=== PATIENT | female | born 1955 | race Caucasian/White ===

== ENCOUNTER → 2016-07-10 | Outpatient (CLI) | payer BC | END | disposition home or self-care (01) | LOC: C.PATHSPEC 17:18 | PROVIDERS: ATTEND Plastic Surgery | DX: L82.1 Other seborrheic keratosis (principal); L91.8 Other hypertrophic disorders of the skin ==

== ENCOUNTER → 2017-04-13 | Outpatient (CLI) | payer BC ==
[~2017-04-13] MED LIST: APRE1TAB3 PO; CLR10 PO; DVN80125 PO; ESTR10TA PV
== END | disposition home or self-care (01) ==
LOC: C.CPL 10:19
PROVIDERS: ATTEND Physician Assistant
DX: Z01.818 Encounter for other preprocedural examination (principal)

== ENCOUNTER → 2017-04-21 | Day surgery (SDC) | payer BC ==
[2017-04-14 14:34] VITALS: Ht 162.6 cm; Wt 68.2 kg
[~2017-04-21] VITALS: Ht 162.6 cm; Wt 68.2 kg
[~2017-04-21] MED LIST changes: +ACETAMINOPHEN 325 MG TAB PO PRN; +ATROPINE SULFATE 0.1 MG/ML 5ML SYR IV PRN; +CLINDAMYCIN 600MG IV SCH; +ERYTHROMYCIN OP OINT 5 MG/GM 3.5 GM TUBE ONE; +EpHEDrine SULFATE INJ 50 MG/ML AMP IV PRN; +EpHEDrine SULFATE INJ 50 MG/ML AMP ONE; +FENTANYL CITRATE INJ 50 MCG/1 ML 2 ML VIAL IV PRN; +FENTANYL CITRATE INJ 50 MCG/1 ML 2 ML VIAL ONE; +GENTIAN VIOLET TOP SOLN DROP CHARGE ONE; +LACTATED RINGER'S 1000ML 1,000 ML IV SCH; +LIDOCAINE HCL 2% 2 ML VIAL (20MG/ML) ONE; +LIDOCAINE/EPINEPHRINE 1% 20 ML VIAL ONE; +METOCLOPRAMIDE HCL INJ 5 MG/ML 2 ML VIAL IV PRN; +MIDAZOLAM HCL 1 MG/ML 2ML VIAL ONE; +ONDANSETRON INJ 2 MG/ML 2 ML VIAL IV PRN; +ONDANSETRON INJ 2 MG/ML 2 ML VIAL ONE; +OXYCODONE/ACETAMINOPHEN 5-325 TAB PO PRN; +POVIDONE-IODINE OP SOLN 30 ML BTL ONE; +PROPOFOL IV EMULSION 10 MG/ML 20 ML VIAL IV ONE; +SCOPOLAMINE 1.5 MG TDSY TD ONE; +SODIUM CHLORIDE 0.9% 1000ML 1,000 ML IV SCH
--- NOTE | 2017-04-21 08:13 | History & Physical Bridge - [place] ---
H&P Re-Evaluation Bridge Note: I have examined the patient, reviewed the History & Physical and in the interval since the performance of the History & Physical I have noted the following changes of clinical significance: No changes noted
--- NOTE | 2017-04-21 08:31 | Discharge Instructions ---
Discharge Instructions Date of Service Apr 21, 2017. Admission Reason for Admission: Bilateral Dermatochalasis Discharge Discharge Diagnosis / Problem: bilateral dermatochalasis Discharge Goals Goal(s): Decrease discomfort, Improve function Activity Recommendations Activity Limitations: per Instructions/Follow-up section ACTIVITY RECOMMENDATIONS: __Normal activities _x_No bending, lifting or straining __No driving _x_Driving allowed when you are off pain medications _x_Walking permitted __You should have help at home for ___ days DRESSINGS: _x_No dressings required __Keep dressings dry/in place until first office visit __Remove dressings ___ and leave dressings off __Apply ice ___ days __Remove dressings and reapply garment _x_Apply antibiotic ointment (prescribed at your last office visit) to wounds 3- 4 times/day for 10 days BATHING: __Keep dressings dry _x_Sponge bathing permitted __Showering permitted _x_No swimming, hot tubs or soaking in a tub MEDICATIONS: Resume previous medications unless instructed otherwise by your surgeon. _x_Do not use aspirin, Motrin, Advil or Ibuprofen as these may promote bleeding. Please use Tylenol. _x_Prescription(s) provided: Pain medication and eye ointment prescribed at your last office visit OTHER INSTRUCTIONS: __Record drain output 2-3 times per day SPECIAL CARE INSTRUCTIONS: * It is normal to have a mild fever after surgery. If your temperature is higher than 101.5 degrees F, please call the office at [phone]. * Constipation is a typical side effect of pain medication. An over-the- counter stool softener will help relieve this. * Leaking around surgical drains may occur and should not cause concern. Sometimes these drains become clogged. If this happens, remove the bulb and milk the clot out of the tube, then replace the bulb. * Drainage from wounds after liposuction is normal and should be expected. Garments will become soiled. You should protect furniture and bedding. This drainage should mostly subside within 2-3 days. Leave garments in place unless instructed to remove them. * If you have unusual drainage from a wound or are concerned you have an infection or have any questions or concerns, please call the office at [phone]. FOLLOW UP VISIT: If not already scheduled, please call the office, , when you return home after surgery to schedule an appointment to be seen in _2__ days. . Current Hospital Diet Patient's current hospital diet: Discharge Diet Recommended Diet: Regular Diet Pending Studies Studies pending at discharge: no Medical Emergencies . Who to Call and When: Medical Emergencies: If at any time you feel your situation is an emergency, please call 911 immediately. . Non-Emergent Contact Non-Emergency issues call your: Primary Care Provider, Surgeon . "Provider Documentation" section prepared by Gricel Castañeda. . VTE Core Measure Inpt VTE Proph given/why not?: SCD's [place] Drug Monitoring Program Search Results: no issues identified
--- NOTE | 2017-04-21 09:40 | [facility] Post Operative Brief Note ---
Immediate Operative Summary Operative Date Apr 21, 2017. Pre-Operative Diagnosis Bilateral Dermatochalasis Post-Operative Diagnosis Same Procedure(s) Performed Bilateral Upper Blepharoplasty and Right Upper Eyelid Excision of Lesion Surgeon Dr. Keyla Calderon Melter Supervisor [employer] Surgeon(s) Keyla Castañeda PA-C Estimated Blood Loss 1 Findings two small lashline lesions right upper lid Specimens 2 right eyelid lesions Anesthesia General Complication(s) None Disposition Recovery Room / PACU
--- NOTE | 2017-04-21 11:00 | Anesthesia Progress Nt - [facility] ---
Anesthesia Post Op Note Date & Time Apr 21, 2017 at 11:00 Vital Signs Pain Intensity: 3 Vital Signs Past 12 Hours Date Time Temp Pulse Resp B/P (MAP) Pulse Ox O2 Delivery O2 Flow Rate FiO2 04/21/17 10:35 141/83 04/21/17 10:34 36.6 69 16 130/77 97 Room Air 04/21/17 10:33 71 13 04/21/17 10:33 70 13 99 04/21/17 10:30 130/77 04/21/17 10:28 73 11 04/21/17 10:28 72 11 100 04/21/17 10:25 126/78 04/21/17 10:23 72 12 04/21/17 10:23 73 12 99 04/21/17 10:22 70 12 100 04/21/17 10:22 70 12 04/21/17 10:20 134/77 04/21/17 10:17 72 12 04/21/17 10:17 72 12 100 04/21/17 10:15 132/82 04/21/17 10:12 78 12 100 04/21/17 10:12 77 12 04/21/17 10:10 123/78 04/21/17 10:07 69 11 100 04/21/17 10:07 70 11 04/21/17 10:05 133/73 04/21/17 10:02 69 12 100 04/21/17 10:02 71 12 04/21/17 10:00 132/75 04/21/17 09:57 70 10 100 04/21/17 09:57 71 10 04/21/17 09:56 70 10 04/21/17 09:56 69 10 100 04/21/17 09:55 127/74 04/21/17 09:51 76 15 100 04/21/17 09:51 75 15 04/21/17 09:50 134/76 04/21/17 09:47 125/80 04/21/17 09:46 36.4 78 12 125/80 98 Diffusion Mask 6 04/21/17 07:34 36.5 69 16 126/76 (93) 96 Room Air Notes Mental Status: alert / awake / arousable, participated in evaluation Pt Amnestic to Procedure: Yes Nausea / Vomiting: adequately controlled Pain: adequately controlled Airway Patency, RR, SpO2: stable & adequate BP & HR: stable & adequate Hydration State: stable & adequate Anesthetic Complications: no major complications apparent
[2017-04-21 11:43] VITALS: BP 147/82; PULSE 68; TEMP 36.7; O2SAT 97
--- NOTE | 2017-04-22 11:51 | OPERATIVE REPORT ---
DATE OF OPERATION: 04/21/2017 PREOPERATIVE DIAGNOSIS: Bilateral upper eyelid dermatochalasis and right upper eyelid skin lesions. POSTOPERATIVE DIAGNOSIS: Same. PROCEDURE: Bilateral noncosmetic upper blepharoplasty with biopsy of right upper eyelid lesions x2. SURGEON: Dr. Keeley Calderon. CHLORINE CELL TENDER: Gricel Castañeda PA-C. ANESTHESIA: General. COMPLICATIONS: None. INDICATION FOR THE PROCEDURE: The patient is a 61-year-old female who presented to my office with drooping eyelids and visual field obstruction. We discussed performing noncosmetic upper blepharoplasty and she desired to proceed. BRIEF DESCRIPTION OF THE PROCEDURE: The risks, benefits and alternatives of the procedure were explained to the patient who agreed and signed consent. She was identified and marked in the preoperative holding area. She was brought to the operating room where she was positioned supine and placed under general anesthesia without incident. Surgical site was prepped and draped sterilely. A time-out procedure was performed. Markings were applied. A trapezoidal incision was marked within the supratarsal crease. This was marked 7 mm above the ciliary margin in the mid pupillary line bilaterally. Incision was carried medially toward the medial punctum taking care not to cross this anatomic landmark and was also marked the lateral canthal area. The superior incision was marked about 1 cm below the brow. Skin was pinched to be sure that adequate closure could be performed. This was felt to be easily achievable without causing any degree of lagophthalmos. Identical markings were applied on the right side. Corneal protectors were placed. 1% lidocaine with epinephrine was used to anesthetize the planned incisions. I began with the left side. A 15 blade scalpel was used to make the incision. Skin was dissected off the underlying orbicularis musculature using electrocautery. This was performed in a lateral to medial direction. I opened the medial fat compartments bilaterally with minimal return of fat. Hemostasis was achieved with electrocautery. Wound was reapproximated using 6-0 nylon interrupted sutures taking a bite of orbicularis muscle with each suture. An identical procedure was undertaken on the right side. Following this, biopsy of the right upper lid margin lesions was performed. Each lesion was anesthetized with 1% lidocaine with epinephrine. A Aggarwal forceps and curved iris scissors were used to perform essentially a shave biopsy of each lesion. Following completion of the procedure, the corneal protectors were removed. The eyes were irrigated with balanced salt solution and antibiotic ophthalmic ointment was applied. The procedure was tolerated well. The patient was extubated and transferred to recovery in satisfactory condition. Gricel Castañeda PA-C was present and scrubbed throughout the entire procedure and assisted in retraction during skin dissection and simultaneous wound closure. I attest to the content of the Intraoperative Record and any orders documented therein. Any exception s are noted below.
== END | disposition home or self-care (01) ==
LOC: X.SURG 07:24
PROVIDERS: ATTEND Plastic Surgery
DX: H02.834 Dermatochalasis of left upper eyelid (principal); H02.831 Dermatochalasis of right upper eyelid; L82.1 Other seborrheic keratosis; I10 Essential (primary) hypertension; L40.9 Psoriasis, unspecified; Z82.3 Family history of stroke; Z83.1 Family history of other infectious and parasitic diseases; Z83.3 Family history of diabetes mellitus; Z82.0 Family history of epilepsy and other diseases of the nervous system